=== PATIENT | male | born 1980 | race Caucasian/White ===

== ENCOUNTER 2017-04-04 11:29 | Emergency (ER) | payer OTHER ==
[2017-04-04] MEDS: LEVALBUTEROL (NEB) 1.25 MG/0.5 ML AMP INH (12:57)
[2017-04-04] MEDS: IPRATROPIUM (NEB) 0.5 MG/2.5 ML AMP INH (12:57)
[2017-04-04] MEDS: METHYLPREDNISOLONE 125 MG INJ IV (13:02)
[2017-04-04] MEDS: SOD CHLORIDE 0.9% 1,000 ML IV (13:09)
== END 2017-04-04 14:24 | disposition home or self-care (01) ==
LOC: FTE 11:29
DX: J45.901 Unspecified asthma with (acute) exacerbation (principal); R05 Cough
CPT/HCPCS: 71045; 94644; 96374; 99284-25